=== PATIENT | male | born 1965 | race Caucasian/White ===

== ENCOUNTER 2018-01-19 17:59 | Inpatient (IN) | payer MEDICAID ==
[~2018-01-19] VITALS: Ht 167.6 cm; Wt 81.6 kg
--- NOTE | 2018-01-19 18:02 | NUR ---
PT TO BED 5 VIA WHEELCHAIR
[2018-01-19 18:05] VITALS: BP 157/81
--- NOTE | 2018-01-19 18:05 | NUR ---
52Y/M BIB FAMILY WITH C/O DIZZY, SHAKING WEAK, UNABLE TO CONCENTRATE X 1 WK. PT STATES "HE HAD TWO BEERS EARLIER TODAY", PT AAOX4, VSS AT THIS TIME, ON 2L O2 SAT AT 97%, BED DOWN, BEDRAIL UP X 1, ER AWARE AND NOTITFIED OF PT STATUS. HX; DENIES RX; DENIES
--- NOTE | 2018-01-19 18:35 | NUR ---
PT TAKEN TO RAD BY CINDY
--- NOTE | 2018-01-19 18:56 | NUR ---
pt back from rad/ct
--- NOTE | 2018-01-19 19:18 | NUR ---
PT LAYING IN BED, VSS, RECEIVED REPORT FROM MARY, WILL CONTINUE TO MONITOR.
--- NOTE | 2018-01-19 19:26 | NUR ---
DR WILLIS EVALUATING PT.
[2018-01-19 19:44] LABS: BASOPHILS # (AUTO) 0.1 K/uL (0.00-0.22); BASOPHILS % (AUTO) 0.8 % (0.0-2.0); EOSINOPHILS # (AUTO) 0.2 K/uL (0-0.4); EOSINOPHILS % (AUTO) 1.4 % (0.0-4.0); HEMATOCRIT 41.5 % (36-52); HEMOGLOBIN 13.9 g/dL (12.0-18.0); LYMPHOCYTES % (AUTO) 15.8 % (20.5-51.1); MEAN CORPUSCULAR HEMOGLOBIN 34 pg (27-31); MEAN CORPUSCULAR HGB CONC 34 g/dL (33-37); MEAN CORPUSCULAR VOLUME 101.3 fL (80-94); MONOCYTES # (AUTO) 0.9 K/uL (0.8-1.0); MONOCYTES % (AUTO) 6.9 % (1.7-9.3); NEUTROPHILS # (AUTO) 9.5 K/uL (1.8-7.7); NEUTROPHILS % (AUTO) 75.1 % (42.2-75.2); PLATELET COUNT (AUTO) 81 K/uL (140-450); RED BLOOD CELL COUNT(AUTO) 4.09 MIL/uL (4.20-6.10); RED CELL DISTRIBUTION WIDTH 15.6 % (11.6-13.7); WHITE BLOOD COUNT (AUTO) 12.6 K/uL (4.8-10.8)
[2018-01-19 19:45] LABS: APPEARANCE,URINE CLEAR (CLEAR); BILIRUBIN,URINE NEGATIVE (NEGATIVE); BLOOD, URINE NEGATIVE (NEGATIVE); COLOR,URINE YELLOW (YELLOW); LEUKOCYTE ESTERASE ,URINE NEGATIVE (NEGATIVE); NITRITE, URINE NEGATIVE (NEGATIVE); PH,URINE 7.5 (5.0-9.0); UGLUCOSE NEGATIVE (NEGATIVE)
[2018-01-19 19:47] LABS: ANION GAP 14.6 (8-16); CARBON DIOXIDE 24.8 mmol/L (21-32); CREATININE 0.6 mg/dL (0.7-1.3); POTASSIUM 3.4 mmol/L (3.5-5.1)
[2018-01-19 19:53] LABS: ALBUMIN 2.9 g/dL (3.4-5.0); TOTAL BILIRUBIN 2.1 mg/dL (0.0-1.0)
[2018-01-19 19:55] LABS: PROTHROMBIN TIME 13.1 secs (10.8-13.4)
[2018-01-19] MEDS ORDERED: NACL 0.9% IV ONE (21:45)
[2018-01-19] MEDS ORDERED: cefTRIAXone 2,000 MG in DEXTROSE 5% 100 ML IV ONE (21:45)
[2018-01-19] MEDS ORDERED: LEVOFLOXACIN 750 MG/D5W PREMIX 150 ML IV ONE (21:45)
--- NOTE | 2018-01-19 21:57 | NUR ---
PT LAYING IN BED, VSS, WILL CONTINUE TO MONITOR.
[2018-01-19] MEDS: NACL 0.9% 1,000 ML IV SCH (22:07)
[2018-01-19] MEDS ORDERED: HYDROcodone/APAP 7.5/325 MG 1 TAB PO PRN (22:10)
[2018-01-19] MEDS ORDERED: ONDANSETRON 4 MG/2 ML VIAL IM/IVP PRN (22:10)
[2018-01-19] MEDS ORDERED: DOCUSATE SODIUM 100 MG GELCAP PO PRN (22:10)
[2018-01-19] MEDS ORDERED: ACETAMINOPHEN 325 MG TAB PO PRN (22:10)
[2018-01-19] MEDS ORDERED: cefTRIAXone 2,000 MG VIAL ONE (22:15)
[2018-01-19 22:40] VITALS: BP 159/79
--- NOTE | 2018-01-19 22:40 | NUR ---
REPORT RECEIVED FROM ED NURSE AT BEDSIDE. PT IN STABLE CONDITION. AAOX4. NO COMPLAINTS OF PAIN. NO SOB. PT VERY SHAKY. INTRODUCED SELF TO PT AND FAMILY. BOARD UPDATED. IV SITE R HAND 20G RUNNING NS@100ML/HR PATENT AND INTACT. SKIN WARM, DRY, AND INTACT WITH NO OPEN WOUNDS. PT ON 2L O2 VIA NC. BED LOCKED IN LOW POSITION. CALL EUCEDA WITHIN REACH. SAFETY PRECAUTIONS IN PLACE. SEIZURE PRECAUTIONS IN PLACE.
[2018-01-19 22:43] LABS: BARBITURATE, URINE NEG. ng/ml (NEG <=200); BENZODIAZEPINE, URINE NEG. ng/mL (NEG <=200); CANNABINOID, URINE NEG. ng/mL (NEG <=50); COCAINE, URINE NEG. ng/mL (NEG <=300); OPIATE, URINE NEG. ng/mL (NEG <=2000); PHENCYCLIDINE SCREEN,URINE NEG. ng/mL (NEG <=25)
--- NOTE | 2018-01-19 22:46 | NUR ---
Patient will be admitted to care of DR LOREDO. Admited to MED SURG. Will go to [id number]. Belongings list completed. Report to ERICKSON MCGRATH.
[2018-01-19 22:55] LABS: FREE T4 (FREE THYROXINE) 1.22 ng/dL (0.76-1.46); MAGNESIUM 1.8 mg/dL (1.8-2.4); PHOSPHORUS 2.5 mg/dL (2.5-4.9); THYROID STIMULATING HORMONE 2.9 uIU/mL (0.34-3.74)
--- NOTE | 2018-01-19 23:04 | NUR ---
LAB CALLED IN CRITICAL VALUE OF LACTIC ACID OF 3.7. MD NOTIFIED. NO CHANGES IN ORDERS.
[2018-01-19] MEDS ORDERED: LORazepam 2 MG/ML VIAL IVP PRN (23:15)
[2018-01-20] VITALS: BP 150/72
[2018-01-20] MEDS ORDERED: ALBUTEROL SULFATE/IPRATROPIU 3 ML SOL IH PRN (00:20)
[2018-01-20] MEDS ORDERED: DEXTROSE 50% 50 ML SYR IVP PRN (00:30)
--- NOTE | 2018-01-20 00:49 | NUR ---
KDUR GIVEN PO. PT TOLERATED WELL.
[2018-01-20] MEDS ORDERED: POTASSIUM CHLORIDE 10 MEQ TABER PO SCH (01:00)
[2018-01-20] MEDS ORDERED: INFLUENZA VIRUS VACCINE QUAD 0.5 ML SYR IMVAC PRN (01:15)
[2018-01-20] MEDS ORDERED: PNEUMOCOCCAL VACCINE 23 MCG/0.5 ML VIAL IMVAC PRN (01:15)
--- NOTE | 2018-01-20 01:30 | NUR ---
LAB CALLED IN CRITICAL VALUE OF LACTIC ACID 3.4. MD NOTIFIED. NO CHANGES IN ORDERS.
--- NOTE | 2018-01-20 03:30 | NUR ---
PT AWAKE AND ALERT LAYING IN BED. NO S/S OF DISTRESS NOTED. PT STILL SHAKY. RESPIRATIONS EVEN, UNLABORED, AND WNL. WILL CONTINUE TO MONITOR.
[2018-01-20] MEDS ORDERED: CLINDAMYCIN 600 MG/4 ML VIAL ONE (04:46)
[2018-01-20] MEDS ORDERED: CLINDAMYCIN 600 MG in DEXTROSE 5% 50 ML IV SCH (05:00)
--- NOTE | 2018-01-20 05:00 | NUR ---
CLEOCIN HUNG AND RUNNING. PT TOLERATING WELL.
[2018-01-20] MEDS: BLOOD GLUCOSE MONITORING 1 DEV DEV FS SCH ×4 (05:26→20:35)
--- NOTE | 2018-01-20 05:26 | NUR ---
BS 149. NO INSULIN COVERAGE NEEDED.
[2018-01-20] MEDS: ALBUTEROL SULFATE/IPRATROPIU 3 ML SOL IH SCH ×3 (06:29→18:58)
[2018-01-20 07:09] LABS: BASOPHILS % (AUTO) 0.4 % (0.0-2.0); EOSINOPHILS # (AUTO) 0.1 K/uL (0-0.4); EOSINOPHILS % (AUTO) 0.4 % (0.0-4.0); HEMATOCRIT 41.3 % (36-52); HEMOGLOBIN 13.8 g/dL (12.0-18.0); LYMPHOCYTES # (AUTO) 1.2 K/uL (2.0-11.5); LYMPHOCYTES % (AUTO) 9.2 % (20.5-51.1); MEAN CORPUSCULAR HEMOGLOBIN 34 pg (27-31); MEAN CORPUSCULAR HGB CONC 33 g/dL (33-37); MEAN CORPUSCULAR VOLUME 101.9 fL (80-94); MONOCYTES % (AUTO) 7.7 % (1.7-9.3); NEUTROPHILS # (AUTO) 10.5 K/uL (1.8-7.7); NEUTROPHILS % (AUTO) 82.3 % (42.2-75.2); PLATELET COUNT (AUTO) 77 K/uL (140-450); RED BLOOD CELL COUNT(AUTO) 4.05 MIL/uL (4.20-6.10); RED CELL DISTRIBUTION WIDTH 15.4 % (11.6-13.7); WHITE BLOOD COUNT (AUTO) 12.8 K/uL (4.8-10.8)
--- NOTE | 2018-01-20 07:25 | NUR ---
REPORT GIVEN TO AM NURSE AT BEDSIDE. PT IN STABLE CONDITION.
[2018-01-20 07:45] LABS: ANION GAP 15.2 (8-16); CARBON DIOXIDE 24.4 mmol/L (21-32); CREATININE 0.5 mg/dL (0.7-1.3); POTASSIUM 3.6 mmol/L (3.5-5.1)
[2018-01-20 08:00] VITALS: BP 151/73
[2018-01-20] MEDS: MULTIVITAMIN/MINERALS 1 TAB PO SCH (08:26)
[2018-01-20] MEDS: FOLIC ACID 1 MG TAB PO SCH (08:27)
[2018-01-20] MEDS: chlordiazePOXIDE 25 MG CAP PO SCH ×3 (08:27→17:29)
[2018-01-20] MEDS: LACTOBACILLUS RHAMNOSUS GG 1 EACH CAP PO SCH (08:33)
[2018-01-20] MEDS: NACL 0.9% 1,000 ML IV SCH ×3 (08:40→22:21)
[2018-01-20] MEDS: FLUoxetine 10 MG CAP PO SCH (08:50)
[2018-01-20] MEDS ORDERED: THIAMINE 100 MG TAB PO SCH (09:00)
--- NOTE | 2018-01-20 09:00 | NUR ---
Patient with upper extremities tremors bilat, and I did give the patient ativan 2 mg IVP per do. Scotty Urban RN
--- NOTE | 2018-01-20 09:19 | NUR ---
PATIENT HAS BEEN SCREENED AND CATEGORIZED HIGH NUTRITION RISK. PATIENT WILL BE SEEN WITHIN 1-2 DAYS OF ADMISSION. 01/19/18-01/21/[address]
[2018-01-20 10:22] LABS: MAGNESIUM 1.4 mg/dL (1.8-2.4); PHOSPHORUS 2.4 mg/dL (2.5-4.9)
[2018-01-20 10:23] LABS: CHOL/HDL RATIO 3.6 (1-4.5)
[2018-01-20] MEDS ORDERED: MAG SULF 2000 MG/WATER PREMIX 50 ML IV ONE (10:25)
--- NOTE | 2018-01-20 10:30 | NUR ---
Patient with family member sister in law at bedside visiting with kraig and I did update her on patient present condition, and allowed her privacy to visit. Scotty Urban RN
[2018-01-20] MEDS ORDERED: SODIUM PHOS / POTASSIUM PHOS 1 PKT PDR PO SCH (10:31)
[2018-01-20] MEDS ORDERED: MULTIVITAMIN-12 10 ML, THIAMINE 100 MG, MAGNESIUM SULFATE 50% 2,000 MG, FOLIC ACID 1 MG... IV SCH ×5 (11:00)
[2018-01-20 12:00] VITALS: BP 142/73
[2018-01-20] MEDS: MAGNESIUM SULFATE 1GM in DEXTROSE 5% 100 ML PREMIX IV SCH ×2 (12:00→13:09)
[2018-01-20] MEDS: INSULIN LISPRO SLIDING SCALE 100 UNITS/ML VIAL SUBQ PRN ×3 (13:14→19:48)
--- NOTE | 2018-01-20 13:25 | NUR ---
PT IS UNABLE TO DO IS AT THIS TIME
[2018-01-20] MEDS: CLINDAMYCIN PHOS 600MG/D5W PM 50 ML IV SCH ×2 (14:24→20:26)
[2018-01-20 16:00] VITALS: BP 138/62
--- NOTE | 2018-01-20 16:00 | NUR ---
Patient IV out due to patient disorientation, and I did start #20 guasge right upper arm. Family member at bedside with patient. Scotty Urban RN
--- NOTE | 2018-01-20 19:30 | NUR ---
Patient iV out and I did reinsert #22 guage right upper arm. Scotty Urban RN
--- NOTE | 2018-01-20 19:31 | NUR ---
RECEIVED FROM AM RN SITTING AT THE EDGE OF BED. BROTHER AT BEDSIDE. PT. NOTED RESTLESS. WITH CONFUSION . NEW IVF SITE INSERTED BY AM RN RT PT. PULLED OUT PREVIOUS IVF SITE. CARE PLANS FOR THE NIGHT DISCUSSED WITH THEM. CALL LIGHT WITH IN REACH. BED ALARM ON.
[2018-01-20 20:19] VITALS: BP 139/80
[2018-01-20] MEDS: LORazepam 2 MG/ML VIAL IVP PRN ×2 (20:27→22:27)
[2018-01-20] MEDS: SODIUM PHOS / POTASSIUM PHOS 1 PKT PDR PO SCH (20:27)
[2018-01-20] MEDS ORDERED: THIAMINE 200 MG/2 ML VIAL IV SCH (21:00)
[2018-01-20] MEDS ORDERED: NACL 0.9% IV SCH (21:00)
[2018-01-20] MEDS ORDERED: THIAMINE IV SCH (21:00)
--- NOTE | 2018-01-20 21:43 | NUR ---
PT. STILL AWAKE AND VERY CONFUSED. NOTED TREMBLING. MEDICATED WITH ATIVAN 2 MG IVP ORDERED. BED ALARM ON.
--- NOTE | 2018-01-20 22:28 | NUR ---
PT. STILL VERY AWAKE AND CONFUSED. TREMORS NOTED AND RESTLESS. MONITORED BY ME CLOSELY. PER TURKS AND [place] ISLANDER SPEAKING CNAS PT. IS VERY CONFUSED .
--- NOTE | 2018-01-20 23:28 | NUR ---
STILL AWAKE AT THIS TIME. ENCOURAGED TO SLEEP. BED ALARM ON. CLOSE MONITORING RT CONFUSED AND TRYING TO GET OUT OF BED. NOTICED UNABLE TO STAND UP STRAIGHT FROM START OF SHIFT. ASSISTED BY BROTHER EARLIER. PER BROTHER PT. IS CONFUSED.
--- NOTE | 2018-01-20 23:55 | NUR ---
RESIDENT MD IN HERE TO LOOK AT PT. STILL VERY AGITATED. REFUSING TO STAY IN BED. ADMINISTERED HALDOL 5 MG IM ORDERED.
[2018-01-20] MEDS ORDERED: HALOPERIDOL IM 5 MG/ML VIAL ONE (23:56)
--- NOTE | 2018-01-21 00:48 | NUR ---
PT. VERY MUCH AWAKE AND TRYING TO GET OUT OF BED . KEPT REMINDING THAT HE IS IN THE HOSPITAL IN [place]. WILL MONITOR CONTINUOUSLY.
[2018-01-21 00:59] VITALS: BP 134/76
[2018-01-21] MEDS ORDERED: ALBUMIN HUMAN 25% 200 ML IV ONE (01:10)
[2018-01-21] MEDS: LORazepam 2 MG/ML VIAL IVP PRN ×3 (01:53→14:20)
--- NOTE | 2018-01-21 01:55 | NUR ---
PT. STILL AWAKE AND VERY RESTLESS. NOTED HAVING TREMORS STILL. MEDICATED WITH ATIVAN 2 MG. IVP . WILL MONITOR CLOSELY.
--- NOTE | 2018-01-21 02:00 | NUR ---
RE-CONFIRMED WITH RESIDENT MD RE ORDER OF ALBUMIN IV , PER MD " NO STOP DO NOT GIVE IT" INFORMED CHARGE NURSE OF STOP ORDER. NOT ADMINISTERED ORDERED.
[2018-01-21] MEDS ORDERED: HALOPERIDOL IM 5 MG/ML VIAL IM SCH ×2 (02:30)
--- NOTE | 2018-01-21 02:50 | NUR ---
PT. SLEEPING AT THIS TIME. KEPT COMFORTABLE. NO SOB. TELEMETRY MONITORING.
--- NOTE | 2018-01-21 04:26 | NUR ---
PT. AWAKE AND VERY RESTLESS. TRYING TO GET UP. VERY CONFUSED. COMBATIVE. HALDOL IM 5 MG ORDERED ADMINISTERED. ENCOURAGED TO RELAX AND GO BACK TO SLEEP. CNAS TRYING TO PACIFY HIM. REFUSING TO LAY BACK IN BED AND TRYING TO GET OUT. TELEMETRY MONITORING.
[2018-01-21 04:28] VITALS: BP 140/77
[2018-01-21] MEDS: CLINDAMYCIN PHOS 600MG/D5W PM 50 ML IV SCH ×3 (05:12→20:57)
[2018-01-21] MEDS: NACL 0.9% 1,000 ML IV SCH ×4 (05:14→21:03)
[2018-01-21] MEDS: BLOOD GLUCOSE MONITORING 1 DEV DEV FS SCH ×6 (05:43→23:35)
[2018-01-21] MEDS ORDERED: DEXT 5% / NACL 0.45% 1,000 ML IV SCH (06:05)
[2018-01-21 06:25] LABS: T4 (THYROXINE) 8.2 ug/dL (4.5-12.0)
--- NOTE | 2018-01-21 06:27 | NUR ---
PT. AWAKE AT THIS TIME AND TRYING TO GET OUT OF BED. ENCOURAGED TO STAY IN BED RT HE WILL HURT HIMSELF AND MIGHT FALL. STILL WITH CONFUSION AT TIMES. BED ALARM ON. TELEMETRY MONITORING.
[2018-01-21] MEDS: ALBUTEROL SULFATE/IPRATROPIU 3 ML SOL IH SCH ×3 (06:44→19:04)
--- NOTE | 2018-01-21 06:44 | NUR ---
PT SLEEPING WITH NO SIGNS OF DISTRESS NOTED AT THIS TIME
[2018-01-21 07:00] LABS: BASOPHILS # (AUTO) 0.1 K/uL (0.00-0.22); BASOPHILS % (AUTO) 0.5 % (0.0-2.0); EOSINOPHILS # (AUTO) 0.3 K/uL (0-0.4); EOSINOPHILS % (AUTO) 2.6 % (0.0-4.0); HEMATOCRIT 38.4 % (36-52); HEMOGLOBIN 12.9 g/dL (12.0-18.0); LYMPHOCYTES # (AUTO) 1.8 K/uL (2.0-11.5); MEAN CORPUSCULAR HEMOGLOBIN 34 pg (27-31); MEAN CORPUSCULAR HGB CONC 34 g/dL (33-37); MEAN CORPUSCULAR VOLUME 101.7 fL (80-94); MONOCYTES # (AUTO) 1.1 K/uL (0.8-1.0); MONOCYTES % (AUTO) 9.3 % (1.7-9.3); NEUTROPHILS # (AUTO) 8.8 K/uL (1.8-7.7); NEUTROPHILS % (AUTO) 72.6 % (42.2-75.2); PLATELET COUNT (AUTO) 78 K/uL (140-450); RED BLOOD CELL COUNT(AUTO) 3.78 MIL/uL (4.20-6.10); RED CELL DISTRIBUTION WIDTH 15.1 % (11.6-13.7); WHITE BLOOD COUNT (AUTO) 12.1 K/uL (4.8-10.8)
[2018-01-21] MEDS ORDERED: chlordiazePOXIDE 25 MG CAP PO SCH ×2 (07:00→09:00)
[2018-01-21 07:10] LABS: ANION GAP 10.5 (8-16); CARBON DIOXIDE 26.4 mmol/L (21-32); CREATININE 0.6 mg/dL (0.7-1.3)
--- NOTE | 2018-01-21 07:13 | NUR ---
ENDORSED TO THE NEXT RN FOR CONTINUITY OF CARE. WAKES UP WHEN CALLED BY NAME OR TOUCHED. NO COMPLAINTS DONE.
--- NOTE | 2018-01-21 07:14 | NUR ---
RECEIVED BEDSIDE REPORT FROM PM NURSE ERLIN. PT ASLEEP, OPENS EYES WITH AUDITORY & TACTILE STIMULI, RESPIRATIONS EVEN & UNLABORED, FLACC 0. BED ALARM ON, CALL LIGHT WITHIN REACH.
[2018-01-21 07:16] LABS: POTASSIUM 2.9 mmol/L (3.5-5.1)
[2018-01-21 07:19] LABS: MAGNESIUM 2.1 mg/dL (1.8-2.4); PHOSPHORUS 3.4 mg/dL (2.5-4.9)
--- NOTE | 2018-01-21 07:35 | NUR ---
ATIVAN ADMINISTERED: PT OBSERVED TO BE CONFUSED, TRYING TO GET OUT OF BED, GENERALIZED SHAKING & TREMORS PRESENT. ATIVAN ADMINISTERED IV. PT ASSISTED BACK TO BED. BED IN LOWEST POSITION, ALARM ON, CALL LIGHT WITHIN REACH.
[2018-01-21 08:00] VITALS: BP 122/78
[2018-01-21] MEDS ORDERED: POTASSIUM CHLORIDE 40 MEQ, LIDOCAINE 1% 25 MG in NACL 0.9% 250 ML IV SCH (08:00)
--- NOTE | 2018-01-21 08:43 | NUR ---
ATIVAN REASSESSMENT: PT ASLEEP IN BED AT THIS TIME, RESPIRATIONS EVEN & UNLABORED, FLACC 0. NO TREMORS/SHAKING OBSERVED. RIGHT FOREARM IV INTACT & ASYMPTOMATIC. K-RIDER WITH LIDOCAINE IV INFUSION INITIATED. BED ALARM ON. CALL LIGHT WITHIN REACH.
[2018-01-21] MEDS: FLUoxetine 10 MG CAP PO SCH (09:04)
[2018-01-21] MEDS: LACTOBACILLUS RHAMNOSUS GG 1 EACH CAP PO SCH (09:05)
[2018-01-21] MEDS: SODIUM PHOS / POTASSIUM PHOS 1 PKT PDR PO SCH ×2 (09:05→20:58)
[2018-01-21] MEDS: FOLIC ACID 1 MG TAB PO SCH (09:05)
[2018-01-21] MEDS: MULTIVITAMIN/MINERALS 1 TAB PO SCH (09:05)
--- NOTE | 2018-01-21 11:10 | NUR ---
PT OBSERVED TRYING TO GET OUT OF BED. PT C/O WANTING TO HAVE A BM. AMB UNSTEADILY FROM BED TO TOILET WITH 2-PERSON MOD ASSIST. HAD SMALL SOFT BROWN BM & VOID CLEAR YELLOW URINE. PERICARE PROVIDED. ASSISTED BACK TO BED VIA 2-PERSON MOD ASSIST. BILAT UPPER PADDED SIDERAILS IN PLACE, BED ALARM ON. CALL LIGHT WITHIN REACH. RIGHT FOREARM IV INTACT WITH ONGOING IVF. [id number] AT BEDSIDE VISITING PT.
[2018-01-21 12:00] VITALS: BP 122/68
[2018-01-21] MEDS ORDERED: NACL 0.9% IV SCH ×2 (12:30→13:00)
[2018-01-21] MEDS ORDERED: THIAMINE IV SCH ×2 (12:30→13:00)
[2018-01-21] MEDS: chlordiazePOXIDE 25 MG CAP PO SCH ×2 (12:49→20:58)
--- NOTE | 2018-01-21 13:08 | NUR ---
PT SLEEPING WITH NO SIGNS OF DISTRESS NOTED AT THIS TIME NO HHN GIVEN
--- NOTE | 2018-01-21 14:20 | NUR ---
ATIVAN ADMINISTRATION: PT OBSERVED WITH GENERALIZED TREMBLING/SHAKING. PT IS AWAKE, CONFUSED, TRYING TO GET OUT OF BED. ASSISTED PT TO SUPINE. BILAT PADDED SIDERAILS UP, BED ALARM ON, CALL LIGHT WITHIN REACH. IV ATIVAN ADMINISTERED. NO VISITOR PRESENT AT THIS TIME.
--- NOTE | 2018-01-21 14:25 | NUR ---
01/21/18 RD INITIAL ASSESSMENT COMPLETED PLEASE REFER TO NUTRITION ASSESSMENT UNDER CARE ACTIVITY FOR ESTIMATED NUTRITIONAL NEEDS. 1. CONTINUE CLEAR LIQUID DIET TOLERATED 2. WHEN/IF PT MEDICALLY STABLE TO BEGIN NUTRITION. CONSIDER [facility] DIET 3. DIETITIAN PROVIDED PATIENT WITH DIABETES NUTRITIONAL EDUCATION 4. RD TO FOLLOW-UP 3-5 DAYS, RISK JAVI ANTHONY RD
--- NOTE | 2018-01-21 15:20 | NUR ---
PT ASLEEP AT THIS TIME, RESPONSIVE TO AUDITORY STIMULI. NO SHAKING/TREMBLING PRESENT. RESPIRATIONS EVEN & UNLABORED, FLACC 0. BED ALARM ON. CALL LIGHT WITHIN REACH.
[2018-01-21 16:00] VITALS: BP 124/76
--- NOTE | 2018-01-21 17:10 | NUR ---
PT GETTING OUT OF BED, STATES HE WANTS TO HAVE A BM. AMB FROM BED TO TOILET WITH 2-PERSON MOD ASSIST. CONT TO HAVE UNSTEADY GAIT. PT VOIDED IN TOILET, NO BM. PERICARE PROVIDED & ASSISTED BACK TO BED. BED ALARM ON, BILAT UPPER SIDERAILS UP, CALL LIGHT WITHIN REACH. VISITOR AT BEDSIDE.
--- NOTE | 2018-01-21 19:17 | NUR ---
RECEIVED REPORT FROM DAY SHIFT NURSE, MARY, AT PT BEDSIDE. PT IN STABLE CONDTION. PT FAMILY IS AT BEDSIDE. PT IS ASLEEP BUT EASILY AROUSABLE. PT IS ON RA. RESPIRATIONS ARE EVEN AND UNLABORED. IV ACCESS IN R FA 22G WITH IVF RUNNING PER MD ORDERS. IV IS PATENT AND INTACT. PT SKIN IS INTACT. PT HAS NO C/O PAIN AT THIS TIME. BED IS LOCKED, LOW POSITION WITH SIDE RAILS UP X2. BOARD UPDATED. CALL LIGHT IS WITHIN REACH. WILL CONTINUE TO MONITOR PT.
--- NOTE | 2018-01-21 19:17 | NUR ---
REPORT GIVEN TO PM NURSE NABEEL. PT AWAKE, VERBAL, NO SIGNS OF DISTRESS.
[2018-01-21 20:00] VITALS: BP 122/70
--- NOTE | 2018-01-21 20:46 | NUR ---
SCHEDULED ROCEPHIN INFUSING. PT SLEEPING COMFORTABLY IN BED. NO SIGS OR SYMPTOMS OF DISTRESS. WILL CONTINUE TO MONITOR.
[2018-01-21] MEDS: NACL 0.9% IV SCH (20:58)
[2018-01-21] MEDS: THIAMINE IV SCH (20:58)
--- NOTE | 2018-01-21 20:58 | NUR ---
ADMINSTERED SCHEDULED MEDICATIONS. PT TOLERATED WELL. NO S/SX OF DISTRESS. WILL CONTINUE TO MONITOR.
--- NOTE | 2018-01-21 23:26 | NUR ---
BS CHECKED, 86. NO COVERAGE NEEDED PER MD ORDERS. PT ASLEEP IN BED WITH NO S/SX OF DISTRESS. WILL CONTINUE TO MONITOR.
[2018-01-22] VITALS: BP 130/73
--- NOTE | 2018-01-22 02:00 | NUR ---
PT ASLEEP IN BED WITH NO S/SX OF DISTRESS. WILL CONTINUE TO MONITOR.
[2018-01-22 04:00] VITALS: BP 131/81
[2018-01-22] MEDS: THIAMINE IV SCH ×3 (04:08→22:52)
[2018-01-22] MEDS: NACL 0.9% IV SCH ×3 (04:08→22:52)
[2018-01-22] MEDS: CLINDAMYCIN PHOS 600MG/D5W PM 50 ML IV SCH ×3 (04:08→20:26)
[2018-01-22] MEDS: chlordiazePOXIDE 25 MG CAP PO SCH ×3 (04:08→16:33)
[2018-01-22] MEDS: BLOOD GLUCOSE MONITORING 1 DEV DEV FS SCH ×5 (04:10→20:25)
--- NOTE | 2018-01-22 04:10 | NUR ---
ADMINISTERED SCHEDULED MEDICATIONS. BS CHECKED, 83. NO COVERAGE NEEDED PER MD ORDERS. PT TOLERATED WELL. NO S/SX OF DISTRESS WILL CONTINUE TO MONITOR.
[2018-01-22] MEDS: NACL 0.9% 1,000 ML IV SCH ×3 (04:12→18:19)
--- NOTE | 2018-01-22 07:10 | NUR ---
ENDORSED PT TO DAY SHIFT NURSE FOR CONTINUITY OF CARE. PT IN STABLE CONDITION.
--- NOTE | 2018-01-22 07:20 | NUR ---
PT REPORT RECEIVED FROM STRIPPING SHOVEL OILER NURSE AT BEDSIDE. PT IS ALERT AND AWAKE, NO S/S OF DISTRESS, NO SOB, NO C/O PAIN NOTED AT THIS TIME. IV SITE NOTED ON R FA, 22 GAUGE, INFUSING NS AT 140 ML/HR. SKIN IS INTACT. PT IS ON ROOM AIR AT THIS TIME. PT IS ON SEIZURE PRECAUTIONS. BED LOW, CALL LIGHT WITHIN REACH. WILL CONTINUE TO MONITOR.
[2018-01-22] MEDS: ALBUTEROL SULFATE/IPRATROPIU 3 ML SOL IH SCH ×3 (07:40→19:37)
--- NOTE | 2018-01-22 07:40 | NUR ---
SATURATION 90% ON ROOM AIR POST HHN THERAPY PLACED ON SUPPLEMENTAL OXYGEN AT 2 LPM VIA ALHAJI SWANSON/RN AT BEDSIDE AWARE
[2018-01-22 08:00] VITALS: BP 132/79
[2018-01-22] MEDS ORDERED: LIB25 PO (09:17)
[2018-01-22] MEDS ORDERED: CLIN300C2 PO (09:17)
[2018-01-22] MEDS ORDERED: CEPH250C16 PO (09:17)
[2018-01-22] MEDS ORDERED: INUL1CTB PO (09:17)
--- NOTE | 2018-01-22 09:55 | NUR ---
S.T. Bedside swallow eval completed. See report for details. Pt presents with adequate oropharyngeal swallow function. No overt s/s aspiration observed across all textures. Pt impulsive and drinks large amounts at a time, requires cueing to take smaller sips. Also, pt demonstrated UE shaking, and would benefit from tray set up. Recommend: 1. Advance to regular texture diet, thin liquids okay. 2. P.O. meds ok whole, one at a time, taken with liquids. 3. Nsg to assist with tray set up due to UE unsteadiness to promote self-feeding. 4. No further tx indicated at this time as pt is functioning at baseline level. Dc to nsg at this time. Time in/out [id number] G8996 CI G8997 CI G8998 CI MARILYNN NOMS LEVEL 2
[2018-01-22] MEDS ORDERED: THIA250T7 PO (10:10)
[2018-01-22] MEDS ORDERED: FOLI1TAB90 PO (10:10)
[2018-01-22] MEDS ORDERED: FLUO10CA21 PO (10:14)
[2018-01-22 10:26] LABS: BASOPHILS # (AUTO) 0.1 K/uL (0.00-0.22); BASOPHILS % (AUTO) 0.6 % (0.0-2.0); EOSINOPHILS # (AUTO) 0.4 K/uL (0-0.4); EOSINOPHILS % (AUTO) 3.8 % (0.0-4.0); HEMATOCRIT 40.8 % (36-52); HEMOGLOBIN 13.7 g/dL (12.0-18.0); LYMPHOCYTES # (AUTO) 1.5 K/uL (2.0-11.5); LYMPHOCYTES % (AUTO) 13.5 % (20.5-51.1); MEAN CORPUSCULAR HEMOGLOBIN 34 pg (27-31); MEAN CORPUSCULAR HGB CONC 34 g/dL (33-37); MEAN CORPUSCULAR VOLUME 102.5 fL (80-94); MONOCYTES # (AUTO) 0.8 K/uL (0.8-1.0); MONOCYTES % (AUTO) 7.5 % (1.7-9.3); NEUTROPHILS # (AUTO) 8.3 K/uL (1.8-7.7); NEUTROPHILS % (AUTO) 74.6 % (42.2-75.2); PLATELET COUNT (AUTO) 99 K/uL (140-450); RED BLOOD CELL COUNT(AUTO) 3.98 MIL/uL (4.20-6.10); RED CELL DISTRIBUTION WIDTH 15.7 % (11.6-13.7); WHITE BLOOD COUNT (AUTO) 11.1 K/uL (4.8-10.8)
[2018-01-22] MEDS: SODIUM PHOS / POTASSIUM PHOS 1 PKT PDR PO SCH ×2 (10:41→22:42)
[2018-01-22] MEDS: FLUoxetine 10 MG CAP PO SCH (10:41)
[2018-01-22] MEDS: MULTIVITAMIN/MINERALS 1 TAB PO SCH (10:41)
[2018-01-22] MEDS: FOLIC ACID 1 MG TAB PO SCH (10:41)
[2018-01-22] MEDS: LACTOBACILLUS RHAMNOSUS GG 1 EACH CAP PO SCH (10:42)
--- NOTE | 2018-01-22 11:00 | NUR ---
WALKED WITH PATIENT IN HIS ROOM, HE IS STILL UNSTABLE AND SHAKY. PT BACK INTO BED.
[2018-01-22 11:45] LABS: ANION GAP 14.8 (8-16); CARBON DIOXIDE 22.3 mmol/L (21-32); CREATININE 0.7 mg/dL (0.7-1.3); POTASSIUM 3.1 mmol/L (3.5-5.1)
[2018-01-22 11:49] LABS: MAGNESIUM 1.7 mg/dL (1.8-2.4); PHOSPHORUS 3.7 mg/dL (2.5-4.9)
[2018-01-22 12:00] VITALS: BP 128/77
[2018-01-22] MEDS ORDERED: MAGNESIUM OXIDE 400 MG TAB PO SCH (12:10)
[2018-01-22] MEDS ORDERED: POTASSIUM CHLORIDE 10 MEQ TABER PO SCH (12:10)
[2018-01-22 16:00] VITALS: BP 123/78
--- NOTE | 2018-01-22 18:12 | NUR ---
PT AWAKE AND ALERT, EATING DINNER. NO S/S OF DISTRESS, NO SOB. FAMILY VISITING AT BEDSIDE. IV NS INFUSING WITHOUT ANY ISSUES. CALL LIGHT WITHIN REACH. FALL AND SEIZURE PRECAUTIONS IN PLACE. WILL CONTINUE TO MONITOR.
--- NOTE | 2018-01-22 19:20 | NUR ---
RECEIVED REPORT AT BEDSIDE FROM SKY ALMENDAREZ DAYSHIFT NURSE FOR CONTINUITY OF CARE, PT IN STABLE CONDITION.
--- NOTE | 2018-01-22 19:30 | NUR ---
PT REPORT GIVEN AT BEDSIDE TO NIGHT NURSE. PT ENDORSED IN STABLE CONDITION.
[2018-01-22 20:00] VITALS: BP 12/76
--- NOTE | 2018-01-22 20:00 | NUR ---
PT IN LOW BED WITH ALL FALLS AND SEIZURE PRECAUTIONS IN PLACE. PT IS AOX1, V/S FOLLOWS T 98.6 P 99 R 20 B/P 123/76 02 92% WITH 2LITERS VIA N/C.
--- NOTE | 2018-01-22 21:00 | NUR ---
PT IN BED AOX1 AND SOMALI SPEAKING ONLY. PT WAS ESCORTED TO BATHROOM AND ESCORTED BACK TO BED AGAIN. IV SITE ON R HAND AND INTACT WITH NO S/S OF INFILTRATION.. PT HAS 2L VIA N/C, HOWEVER PT KEEPS TAKING OFF N/C, EVEN AFTER EXPLAINING RISKS AND BENEFITS. PT HAS ALL FALLS AND SEIZURE PRECAUTIONS IN PLACE.PT LUNG SOUNDS DIMINISHED BOTH LOBS AND ABDOMEN POSITIVE FOR B/S IN ALL 4 QUADS. PT ABD IS SOFT AND DISTENDED. PT DENIES PAIN AT THIS TIME.
[2018-01-22] MEDS ORDERED: THIAMINE 200 MG/2 ML VIAL ONE ×2 (22:32→22:40)
--- NOTE | 2018-01-22 23:00 | NUR ---
PT RECEIVED ALL IVS ORDERED CLINDAMYCIN, ROCEPHIN AND VITAMIN B1 WITHOUT ANY ADVERSE EFFECTS.
[2018-01-23] VITALS: BP 140/72
--- NOTE | 2018-01-23 | NUR ---
PT IN BED ALL FALLS PRECAUTION AND SEIZURE PRECAUTIONS IN PLACE. V/S FOLLOWS T 98.9 P 94 R 18 B/P 140/72 02 93% WITH 2LITERS VIA N/C. PT SHAKING AND REQUEST MORE BLANKETS. MORE BLANKETS PROVIDED REQUESTED. FINGERSTICK 124 NO COVERAGE NEEDED.
[2018-01-23] MEDS: LORazepam 2 MG/ML VIAL IVP PRN (01:08)
--- NOTE | 2018-01-23 01:15 | NUR ---
PT NOTED STILL SHAKING AND GETTING OUT OF BED TO MAKE BED. PT GIVEN ATIVAN FOR SHAKING AND ANXIETY. WILL MONITOR FOR EFFECT.
[2018-01-23] MEDS: NACL 0.9% 1,000 ML IV SCH ×2 (01:39→08:48)
--- NOTE | 2018-01-23 02:30 | NUR ---
PT ASSISTED TO BATHROOM AND BACK TO BED.
[2018-01-23 04:00] VITALS: BP 130/67
[2018-01-23] MEDS: BLOOD GLUCOSE MONITORING 1 DEV DEV FS SCH ×4 (04:00→12:00)
[2018-01-23] MEDS: CLINDAMYCIN PHOS 600MG/D5W PM 50 ML IV SCH ×2 (05:14→13:31)
[2018-01-23] MEDS: THIAMINE IV SCH (05:56)
[2018-01-23] MEDS: NACL 0.9% IV SCH (05:56)
[2018-01-23] MEDS: ALBUTEROL SULFATE/IPRATROPIU 3 ML SOL IH SCH ×2 (06:56→14:32)
--- NOTE | 2018-01-23 07:15 | NUR ---
REPORT GIVEN TO JANE RN DAYSHIFT NURSE FOR CONTINUITY OF CARE, PT INSTABLE CONDITION.
--- NOTE | 2018-01-23 07:16 | NUR ---
RECEIVED REPORT FROM BLINDSTITCH MACHINE OPERATOR NURSE FOR CONTINUITY OF CARE. PT IN STABLE CONDITION. RESPIRATIONS EVEN AND UNLABORED, O2 2L VIA NC. IV INTACT, PATENT. SAFETY MEASURES IN PLACE. CALL LIGHT AT BEDSIDE. BED IN LOW POSITION. WILL CONTINUE TO MONITOR.
[2018-01-23 07:36] LABS: BASOPHILS # (AUTO) 0.1 K/uL (0.00-0.22); BASOPHILS % (AUTO) 0.6 % (0.0-2.0); EOSINOPHILS # (AUTO) 0.5 K/uL (0-0.4); EOSINOPHILS % (AUTO) 3.9 % (0.0-4.0); HEMATOCRIT 41.8 % (36-52); HEMOGLOBIN 13.9 g/dL (12.0-18.0); LYMPHOCYTES # (AUTO) 2.4 K/uL (2.0-11.5); LYMPHOCYTES % (AUTO) 20.3 % (20.5-51.1); MEAN CORPUSCULAR HEMOGLOBIN 34 pg (27-31); MEAN CORPUSCULAR HGB CONC 33 g/dL (33-37); MEAN CORPUSCULAR VOLUME 103.5 fL (80-94); MONOCYTES % (AUTO) 8.9 % (1.7-9.3); NEUTROPHILS # (AUTO) 7.8 K/uL (1.8-7.7); NEUTROPHILS % (AUTO) 66.3 % (42.2-75.2); PLATELET COUNT (AUTO) 107 K/uL (140-450); RED BLOOD CELL COUNT(AUTO) 4.04 MIL/uL (4.20-6.10); RED CELL DISTRIBUTION WIDTH 15.3 % (11.6-13.7); WHITE BLOOD COUNT (AUTO) 11.8 K/uL (4.8-10.8)
[2018-01-23 07:56] LABS: MAGNESIUM 1.7 mg/dL (1.8-2.4); PHOSPHORUS 3.6 mg/dL (2.5-4.9)
[2018-01-23 08:00] VITALS: BP 147/78
--- NOTE | 2018-01-23 08:00 | NUR ---
HARDWARE SALES ASSISTANT [id number] USED TO RELAY INFORMATION FROM PT TO NURSE.
[2018-01-23 08:06] LABS: ANION GAP 14.3 (8-16); CARBON DIOXIDE 22.4 mmol/L (21-32); CREATININE 0.7 mg/dL (0.7-1.3); POTASSIUM 3.7 mmol/L (3.5-5.1)
[2018-01-23] MEDS ORDERED: MAGNESIUM OXIDE 400 MG TAB PO SCH (08:30)
--- NOTE | 2018-01-23 08:30 | NUR ---
STANDBY ASSISTED PATIENT TO RESTROOM. PT TOLERATED WELL. WILL CONTINUE TO MONITOR.
[2018-01-23] MEDS ORDERED: THIA250T7 PO (08:59)
[2018-01-23] MEDS ORDERED: FLUO10CA21 PO (08:59)
[2018-01-23] MEDS ORDERED: CLIN300C5 PO (08:59)
[2018-01-23] MEDS ORDERED: LACT1.4C PO (08:59)
[2018-01-23] MEDS ORDERED: LIB25 PO (08:59)
[2018-01-23] MEDS ORDERED: CEPH250C16 PO (08:59)
[2018-01-23] MEDS ORDERED: FOLI1TAB90 PO (08:59)
[2018-01-23] MEDS ORDERED: THIAMINE 200 MG/2 ML VIAL IV SCH (09:00)
--- NOTE | 2018-01-23 09:00 | NUR ---
PT CONTINUES TO GET OUT OF BED WITHOUT ASSISTANCE. BED ALARM SET. WILL CONTINUE TO MONITOR. BED IN LOW POSITION.
[2018-01-23] MEDS: LACTOBACILLUS RHAMNOSUS GG 1 EACH CAP PO SCH (09:46)
[2018-01-23] MEDS: MULTIVITAMIN/MINERALS 1 TAB PO SCH (09:46)
[2018-01-23] MEDS: FLUoxetine 10 MG CAP PO SCH (09:46)
[2018-01-23] MEDS: SODIUM PHOS / POTASSIUM PHOS 1 PKT PDR PO SCH (09:47)
[2018-01-23] MEDS: FOLIC ACID 1 MG TAB PO SCH (09:47)
[2018-01-23] MEDS: chlordiazePOXIDE 25 MG CAP PO SCH ×2 (10:23→13:31)
--- NOTE | 2018-01-23 11:00 | NUR ---
ASSISTED PT TO THE RESTROOM. WILL CONTINUE TO MONITOR.
[2018-01-23 12:00] VITALS: BP 128/73
--- NOTE | 2018-01-23 12:00 | NUR ---
TRIED CALLING PT RIDE HOME RHODA MOHAN, WITH NO ANSWER. MESSAGE LEFT. WILL CONTINUE TO TRY.
--- NOTE | 2018-01-23 13:00 | NUR ---
ORDERED DUE MEDICATIONS GIVEN, PT TOLERATED WELL. WILL CONTINUE TO MONITOR.
--- NOTE | 2018-01-23 13:40 | NUR ---
PATIENT WITH LUNCH TRAY AT THIS TIME TIRE BUFFER TO ATTEMPT HHN THERAOY AT A A LATER TIME
--- NOTE | 2018-01-23 15:35 | NUR ---
ABLE TO GET IN TOUCH WITH PT FRIEND RHODA FOR A RIDE HOME. WILL SITE LEADER PT IN 1 HOUR.
[2018-01-23 16:00] VITALS: BP 134/78
--- NOTE | 2018-01-23 16:47 | NUR ---
GAVE DISCHARGE INSTRUCTIONS AND RX PRESCRIPTIONS TO PT. PT VERBALIZED UNDERSTANDING OF DISCHARGE INSTRUCTIONS. REMOVED IV LUMEN INTACT. WHEELED PT TO LOBBY WHERE RIDE (FRIEND RHODA/ BROTHER) WAS WAITING TO TAKE HIM HOME. PT IN STABLE CONDITION.
[2018-01-24] MEDS ORDERED: THIAMINE 200 MG/2 ML VIAL IV SCH (09:00)
== END 2018-01-23 16:47 | disposition home or self-care (01) | DRG 720 ==
LOC: MED 17:59 → MTU 22:09
PROVIDERS: ADMIT General Practice; ATTEND General Practice
DX: A41.9 Sepsis, unspecified organism (principal); J69.0 Pneumonitis due to inhalation of food and vomit; G92 Toxic encephalopathy; E44.0 Moderate protein-calorie malnutrition; F10.231 Alcohol dependence with withdrawal delirium; E11.65 Type 2 diabetes mellitus with hyperglycemia; E87.6 Hypokalemia; Y90.7 Blood alcohol level of 200-239 mg/100 ml; F32.9 Major depressive disorder, single episode, unspecified; I51.7 Cardiomegaly; E83.42 Hypomagnesemia; E83.39 Other disorders of phosphorus metabolism; K70.30 Alcoholic cirrhosis of liver without ascites; Z68.29 Body mass index [BMI] 29.0-29.9, adult
CPT/HCPCS: 36415; 70450; 71045; 76705; 80048; 80053; 80305; 81003; 82150; 82550; 82553; 82948; 83036; 83605; 83690; 83735; 83874; 83880; 84100; 84436; 84439; 84443; 84479; 84484; 85025; 85610; 85730; 86886; 86900; 86901; 87040; 87081; 87086; 87205; 89220; 92610; 93005; 94640; 96365; 96368; 99285; A9153; G0482; J0696; J1630; J1815; J1956; J2001; J2060; J3411; J3475; J3480; J3490; J7030; J7060; J7620; P9046; Q0092